=== PATIENT | male | born 1980 | race Caucasian/White ===

== ENCOUNTER 2017-03-07 21:06 | Emergency (ER) | payer OTHER ==
[2017-03-07] MEDS ORDERED: AMOXICILLIN 250 MG CAPSULE PO ONE (22:09)
--- NOTE | 2017-03-07 22:14 | ER NURSING DOCUMENTATION ---
Nurse's Notes [facility] Name:Jude Yanez Age:36 yrs Sex:Male :1980 Arrival Date:03/07/2017 Time:21:06 Bed2 Private MD:Physician, Miranda Diagnosis:Dental Abscess Presentation: 03/07 21:14 Presenting complaint: Patient states: left lower dental pain, has cracked tooth. lb Transition of care: patient was not received from another setting of care. Notified ED Physician of Dr. King notified. 21:14 Acuity: SAMUEL 5 lb 21:14 Method Of Arrival: Walk In lb Triage Assessment: 21:16 General: Appears uncomfortable, Behavior is appropriate for age, pleasant. Pain: lb Complains of pain in lower left second molar, lower left first molar and lower left second bicuspid Pain does not radiate. Pain currently is 10 out of 10 on a pain scale. EENT: Reports pain in lower left second molar. Neuro: No deficits noted. Cardiovascular: No deficits noted. Respiratory: No deficits noted. GI: No deficits noted. : No deficits noted. Historical: - Allergies: No known drug Allergies; - Home Meds: 1. Amoxicillin Oral - PMHx: None; - PSHx: Tonsillectomy; HERNIA REPAIR; - Tetanus: < 10 years. - Ebola Screening: : Patient denies exposure to infectious person. Patient denies travel to an Ebola-affected area in the 21 days before illness onset. . - Immunization history: Flu Vaccine < 1 year. - Social history: Smoking status: Patient uses tobacco products, current every day smoker. Patient/guardian denies using alcohol. - Code Status:: Full code. Screenin:17 Infectious Disease Risk None. Abuse screen: Denies threats or abuse. Denies injuries lb from another. Nutritional screening: No deficits noted. Assessment: 21:17 See Triage Assessment done by same RN. Pain: Complains of pain in lower left second lb molar, lower left first molar and lower left second bicuspid Pain does not radiate. Pain currently is 10 out of 10 on a pain scale. Neuro: No deficits noted. EENT: No deficits noted. Cardiovascular: No deficits noted. Respiratory: No deficits noted. GI: No deficits noted. Vital Signs: 21:14 BP 160 / 11; Pulse 107; Resp 14; Temp 99.3; Pulse Ox 91% on R/A; Weight 102.06 kg; em1 Height 5 ft. 7 in. (170.18 cm); Pain 9/10; 21:14 Body Mass Index 35.24 (102.06 kg, 170.18 cm) em1 ED Course: 21:09 Patient arrived in ED. em2 21:09 Physician, No is Private Physician. em2 21:11 Gely Willis is Primary Nurse. lb 21:13 Chino King MD is Attending Physician. sc 21:15 Triage completed. lb 21:17 Valuables Remains with patient Patient has correct armband on for positive lb identification. Bed in low position. 21:55 Private, Dentist is Referral Physician. sc Administered Medications: 22:00 Drug: Amoxicillin 500 mg; Route: PO; wv1 22:11 Follow up: Response: No adverse reaction [facility] [place] 22:10 Drug: HYDROcodone-acetaminophen (5mg/325 mg) 1-2 tabs 1 tabs; Route: PO; wv1 22:11 Follow up: Response: Pharmacy closed - take home med pack [facility] [place] Outcome: 21:56 Discharge ordered by . wv 22:14 Patient left the ED. wv1 22:20 Discharged to home ambulatory. [facility] [place] 22:20 Condition: stable 22:20 Discharge instructions given to patient, Instructed on discharge instructions, follow up and referral plans. medication usage, Demonstrated understanding of Prescriptions given X 1. 06 12:00 Discharge F/U Call: Unable to reach: no answer Signatures: Rosemarie Whittington, RN RN [facility] [place] Chino King MD MD wv [employer], [employer] 1 [facility]-reg, Cindi-reg 2 Gina Joya Gely Willis
--- NOTE | 2017-03-07 22:15 | ER PHYSICIAN DOCUMENTATION ---
Physician Documentation [facility] Name:Jude Yanez Age:36 yrs Sex:Male :1980 Arrival Date:03/07/2017 Time:21:06 Bed2 Private MD:Physician, No ED Chino Campbell Disposition: 03/07/17 21:56 Discharged to Home/Self Care. Impression: Dental Abscess. - Condition is Good. - Discharge Instructions: DENTAL ABSCESS. - Prescriptions for Amoxicillin 500 mg Oral Capsule - take 1 capsule by ORAL route every 8 hours for 10 days; 30 tablet. - Medical Reconciliation form form. - Follow up: Private, Dentist; When: 2 - 3 days; Reason: Continuance of care. - Problem is new. - Symptoms have improved. HPI: 03/07 21:53 This 36 yrs old Male presents to ER via Walk In with complaints of Toothache. sc 21:53 The patient presents with pain. The problem is located in the lower left second molar. sc Onset: The symptom(s)/episode began/occurred 2 week(s) ago, and became worse today. forgot amox in [place]. Historical: - Allergies: No known drug Allergies; - Home Meds: 1. Amoxicillin Oral - PMHx: None; - PSHx: Tonsillectomy; HERNIA REPAIR; - Tetanus: < 10 years. - Ebola Screening: : Patient denies exposure to infectious person. Patient denies travel to an Ebola-affected area in the 21 days before illness onset. . - Immunization history: Flu Vaccine < 1 year. - Social history: Smoking status: Patient uses tobacco products, current every day smoker. Patient/guardian denies using alcohol. - Code Status:: Full code. ROS: 21:54 Constitutional: Negative for fever, chills, and weight loss. sc Eyes: Negative for injury, pain, redness, and discharge. Cardiovascular: Negative for chest pain, palpitations, and edema. Respiratory: Negative for shortness of breath, cough, wheezing, and pleuritic chest pain. Back: Negative for injury and pain. 21:54 Neuro: Negative for headache, weakness, numbness, tingling, and seizure. sc 21:54 ENT: Positive for dental pain. Exam: Constitutional: This is a well developed, well nourished patient who is awake, alert, and in no acute distress. Head/Face: Normocephalic, atraumatic. 21:54 Eyes: Pupils equal round and reactive to light, extra-ocular motions intact. Lids and sc lashes normal. Conjunctiva and sclera are non-icteric and not injected. Cornea within normal limits. Periorbital areas with no swelling, redness, or edema. 21:54 ENT: Mouth: no acute changes, Dental exam: dental caries, fractured teeth are noted. Vital Signs: 21:14 BP 160 / 11; Pulse 107; Resp 14; Temp 99.3; Pulse Ox 91% on R/A; Weight 102.06 kg; em1 Height 5 ft. 7 in. (170.18 cm); Pain 9/10; 21:14 Body Mass Index 35.24 (102.06 kg, 170.18 cm) em1 MDM: 21:13 Patient medically screened. pa 21:55 Differential diagnosis: dental caries, dental abscess. Data reviewed: vital signs, pa nurses notes, and as a result, I will discharge patient. Counseling: I had a detailed discussion with the patient and/or guardian regarding: the historical points, exam findings, and any diagnostic results supporting the discharge/admit diagnosis, the need for outpatient follow up, to return to the emergency department if symptoms worsen or persist or if there are any questions or concerns that arise at home. Dispensed Medications: 22:00 Drug: Amoxicillin 500 mg; Route: [place]; [facility] [place] 22:11 Follow up: Response: No adverse reaction [facility] [place] 22:10 Drug: HYDROcodone-acetaminophen (5mg/325 mg) 1-2 tabs 1 tabs; Route: PO; [facility] [place] 22:11 Follow up: Response: Pharmacy closed - take home med pack [facility] [place] Signatures: Rosemarie Whittington, RN RN [facility] [place] Chino King MD MD sc Bollock, Lynda lb
== END 2017-03-07 22:14 | disposition home or self-care (01) ==
LOC: ER 21:06
DX: K04.7 Periapical abscess without sinus (principal); K03.81 Cracked tooth; K02.9 Dental caries, unspecified; F17.210 Nicotine dependence, cigarettes, uncomplicated
CPT/HCPCS: 99283